=== PATIENT | male | born 1990 | race Caucasian/White ===

== ENCOUNTER 2021-04-12 02:50 | Emergency (ER) | payer BC ==
[2021-04-12] MEDS ORDERED: Sodium Chloride 0.9% 2.5 ML Syringe FLUSH PRN (02:51)
[2021-04-12] MEDS ORDERED: Ondansetron 4 MG/2 ML SDV IVPUSH ONE (02:51)
[2021-04-12] MEDS ORDERED: Sodium Chloride 0.9% 10 ML Syringe FLUSH PRN (02:51)
[2021-04-12] MEDS ORDERED: fentaNYL 50 MCG/ML SDV IVPUSH ONE ×2 (02:51→04:37)
[2021-04-12] MEDS ORDERED: Sodium Chloride 0.9% 1,000 ML IV ONE ×2 (02:51→02:53)
[2021-04-12] MEDS ORDERED: Ketorolac 30 MG/ML SDV IVPUSH ONE (02:51)
[2021-04-12] MEDS ORDERED: Tamsulosin 0.4 MG Cap.ER PO ONE (02:52)
--- NOTE | 2021-04-12 02:57 | EDM.PDOC ---
ED HPI GENERAL MEDICAL PROBLEM - General Stated Complaint: KIDNEY PAIN Time Seen by Provider: 04/12/21 02:51 - History of Present Illness INITIAL COMMENTS - FREE TEXT/NARRATIVE: HISTORY AND PHYSICAL: History of present illness: This is a 30-year-old gentleman with a history significant for kidney stones in the past when he was 12 years old who presents ER today secondary to severe pain to his left flank consistent with the pain that he is had with his prior kidney stone. Patient reports that the pain started this evening and has been severe with nausea and vomiting. Patient denies any recent fevers, shakes, chills, diarrhea, constipation, chest pain, shortness of breath. Patient has any melena or bright red blood per rectum. Patient has any coffee-ground emesis or hematemesis. Patient denies any bright red blood per rectum or melena. Patient reports the pain is colicky in nature. Review of systems: As per history of present illness and below otherwise all systems reviewed and negative. Past medical history: As per history of present illness and as reviewed below otherwise noncontributory. Surgical history: As per history of present illness and as reviewed below otherwise noncontributory. Social history: No reported history of drug abuse. Family history: As per history of present illness and as reviewed below otherwise noncontributory. Physical exam: This patient was seen and evaluated during the 2019 SARS-CoV-2 novel coronavirus pandemic period. Community viral transmission is ongoing at time of this encounter and the emergency department is operating under pandemic response procedures. Constitutional: Patient is oriented to person, place, and time. Appears well- developed and well-nourished. No distress. HEENT: Moist mucous membranes Head: Normocephalic and atraumatic Eyes: Right eye exhibits no discharge. Left eye exhibits no discharge. No scleral icterus Neck: Normal range of motion. No tracheal deviation present. Cardiovascular: Normal rate and regular rhythm. Pulmonary: Effort normal, no respiratory distress. Abd: Soft, nondistended, no rebound/guarding, no psoas or obturator signs, no tenderness at Mcberney's point, no Aranda's sign. Pt does not present with an exam that would be consistent with an acute surgical abdomen at this time, tenderness palpation left flank and left lower quadrant with episodes of retching while in the room. Musculoskeletal: Normal range of motion Neurologic: Alert and oriented to person, place and time. Skin: [place], warm and dry. Psychiatric: Normal mood and affect. Behavior is normal. Judgment and thought content normal. Nursing note and vital signs have been reviewed Diagnostics: CT scan of the abdomen pelvis reveals a 5 mm UVJ stone with mild to moderate hydronephrosis on the left side. No other significant abnormality identified. CBC, CMP within normal limits. Patient's urinalysis reveals significant mount of blood consistent with a kidney stone. Therapeutics: NSS x2 L, fentanyl 50 mg IV, Toradol 30 mg IV, Flomax 0.4 mg p.o. Assessment and plan: 89year-old gentleman who presents ER today with signs and symptoms and a presentation that appears to be consistent with renal colic. Patient will have a CBC, CMP, urinalysis as well as a CT scan of the abdomen pelvis without contrast. Patient will be given adequate analgesia with Toradol, fentanyl, NSS, Zofran and Flomax. Patient's CT scan is consistent with a UVJ stone 5 mm on the left side. Patient received adequately as you with fentanyl Toradol and Flomax here in the ED with near complete resolution of the pain at first however at approximately 4:30 AM, the pain recurred and the patient was complaining of pain to his left flank started to come back so he was given an additional 100 mcg of fentanyl and will be reevaluated. Definitive disposition and diagnosis as appropriate pending reevaluation and review of above. Abdomen Pain Score (Numeric/FACES): 10 - Related Data Allergies Allergy/AdvReac Type Severity Reaction Status Date / Time No Known Allergies Allergy Verified 04/12/21 03:06 Home Meds: Home Meds . [No Known Home Meds] 04/12/21 [History] ED ROS GENERAL - Review of Systems Review Of Systems: See Below ED EXAM, GENERAL - Physical Exam Exam: See Below Course - Vital Signs Last Recorded V/S: Last Vital Signs Temp 97 F 04/12/21 02:50 Pulse 64 04/12/21 03:25 Resp 18 04/12/21 03:25 BP 113/71 04/12/21 03:25 Pulse Ox 96 04/12/21 03:25 - Orders/Labs/Meds Orders: Active Orders 24 hr Category Date Time Status Sodium Chloride 0.9% [Saline Flush] Med 04/12/21 02:51 Active 10 ml FLUSH ASDIRECTED PRN Sodium Chloride 0.9% [Saline Flush] Med 04/12/21 02:51 Active 2.5 ml FLUSH ASDIRECTED PRN Saline Lock Insert [OM.PC] Stat Oth 04/12/21 02:51 Ordered Medication Orders Sodium Chloride (Sodium Chloride 0.9% 10 Ml Syringe) 10 ml FLUSH ASDIRECTED PRN PRN Reason: Keep Vein Open Sodium Chloride (Sodium Chloride 0.9% 2.5 Ml Syringe) 2.5 ml FLUSH ASDIRECTED PRN PRN Reason: Keep Vein Open Labs: Laboratory Tests 04/12/21 04/12/21 04/12/21 Range/Units 02:50 02:50 03:10 WBC 8.18 (4.0-11.0) K/uL RBC 4.72 (4.50-5.90) M/uL Hgb 15.3 (13.0-17.0) g/dL Hct 41.7 (38.0-50.0) % MCV 88.3 (80.0-98.0) fL MCH 32.4 H (27.0-32.0) pg MCHC 36.7 (31.0-37.0) g/dL RDW Std Deviation 39.9 (28.0-62.0) fl RDW Coeff of Tamia 12 (11.0-15.0) % Plt Count 240 (150-400) K/uL MPV 10.00 (7.40-12.00) fL Neut % (Auto) 40.0 L (48.0-80.0) % Lymph % (Auto) 50.9 H (16.0-40.0) % [place] % (Auto) 8.2 (0.0-15.0) % Eos % (Auto) 0.7 (0.0-7.0) % Baso % (Auto) 0.2 (0.0-1.5) % Neut # (Auto) 3.3 (1.4-5.7) K/uL Lymph # (Auto) 4.2 H (0.6-2.4) K/uL [place] # (Auto) 0.7 (0.0-0.8) K/uL Eos # (Auto) 0.1 (0.0-0.7) K/uL Baso # (Auto) 0.0 (0.0-0.1) K/uL Nucleated RBC % 0.0 /100WBC Nucleated RBCs # 0 K/uL Sodium 145 (136-148) mmol/L Potassium 3.3 L (3.5-5.1) mmol/L Chloride 105 (98-107) mmol/L Carbon Dioxide 27.5 (21.0-32.0) mmol/L BUN 15 (7.0-18.0) mg/dL Creatinine 1.0 (0.8-1.3) mg/dL Est Cr Clr Drug Dosing TNP Estimated GFR (MDRD) > 60.0 ml/min Glucose 107 H (74-106) mg/dL Calcium 8.4 L (8.5-10.1) mg/dL Total Bilirubin 0.7 (0.2-1.0) mg/dL AST 18 (15-37) IU/L ALT 29 (14-63) IU/L Alkaline Phosphatase 97 (46-116) U/L Total Protein 7.0 (6.4-8.2) g/dL Albumin 4.1 (3.4-5.0) g/dL Globulin 2.9 (2.6-4.0) g/dL Albumin/Globulin Ratio 1.4 (0.9-1.6) Lipase 98 (73-393) U/L Urine Color YELLOW Urine Appearance SLT CLOUDY Urine pH 6.0 (5.0-8.0) Ur Specific Mcloud >= 1.030 (1.001-1.035) Urine Protein NEGATIVE (NEGATIVE) mg/dL Urine Glucose (UA) NEGATIVE (NEGATIVE) mg/dL Urine Ketones TRACE H (NEGATIVE) mg/dL Urine Occult Blood LARGE H (NEGATIVE) Urine Nitrite NEGATIVE (NEGATIVE) Urine Bilirubin NEGATIVE (NEGATIVE) Urine Urobilinogen 0.2 (<2.0) EU/dL Ur Leukocyte Esterase NEGATIVE (NEGATIVE) Urine RBC 20-30 (0-2/HPF) Urine WBC 0-2 (0-5/HPF) Ur Epithelial Cells RARE (NONE-FEW) Calcium Oxalate Crystal RARE (NEGATIVE) Urine Bacteria FEW (NEGATIVE) Meds: Medications Generic Name Dose Route Start Last Admin Trade Name Freq PRN Reason Stop Dose Admin Sodium Chloride 10 ml 04/12/21 02:51 Sodium Chloride 0.9% 10 Ml Syringe FLUSH ASDIRECTED PRN Keep Vein Open Sodium Chloride 2.5 ml 04/12/21 02:51 Sodium Chloride 0.9% 2.5 Ml Syringe FLUSH ASDIRECTED PRN Keep Vein Open Discontinued Medications Generic Name Dose Route Start Last Admin Trade Name Marilyn PRN Reason Stop Dose Admin Fentanyl 50 mcg 04/12/21 02:51 04/12/21 03:07 Fentanyl 50 Mcg/Ml Sdv IVPUSH 04/12/21 02:52 50 mcg ONETIME ONE Administration Fentanyl 100 mcg 04/12/21 04:37 04/12/21 04:43 Fentanyl 50 Mcg/Ml Sdv IVPUSH 04/12/21 04:38 100 mcg ONETIME ONE Administration Sodium Chloride 1,000 mls @ 999 mls/hr 04/12/21 02:51 04/12/21 03:07 Normal Saline IV 04/12/21 03:51 999 mls/hr .Bolus ONE Administration Sodium Chloride 1,000 mls @ 999 mls/hr 04/12/21 02:53 04/12/21 03:07 Normal Saline IV 04/12/21 03:53 999 mls/hr .Bolus ONE Administration Ketorolac Tromethamine 30 mg 04/12/21 02:51 04/12/21 03:07 Ketorolac 30 Mg/Ml Sdv IVPUSH 04/12/21 02:52 30 mg ONETIME ONE Administration Ondansetron HCl 4 mg 04/12/21 02:51 04/12/21 03:07 Ondansetron 4 Mg/2 Ml Sdv IVPUSH 04/12/21 02:52 4 mg ONETIME ONE Administration Tamsulosin HCl 0.4 mg 04/12/21 02:52 04/12/21 03:07 Tamsulosin 0.4 Mg Cap.Er PO 04/12/21 02:53 0.4 mg ONETIME ONE Administration Departure - Departure Time of Disposition: 04:53 Disposition: Home, Self-Care 01 Condition: Good Clinical Impression: Hydronephrosis of left kidney, Renal colic on left side - Discharge Information Instructions: Renal Colic, [id number], Hydronephrosis Additional Instructions: Your seen and evaluated in ER today secondary to pain to your left flank that appears to be consistent with a 5 mm kidney stone at the junction of your ureter and your bladder. This has a mild to moderate amount of hydronephrosis which is swelling to your kidney which is known to cause pain and aching even after your kidney stone passes. You will be sent home with a prescription for pain medicines as well as medication to help you pass your stone. Percocet 5325 every 4-6 hours as needed for pain Ibuprofen 600 mg every 6 hours as needed for pain Zofran 4 mg under your tongue every 6 hours as needed for nausea and vomiting Flomax 0.4 mg every evening to help pass the stone Dr. [facility]co [facility] [address] [address] The following information is given to patients seen in the emergency department who are being discharged to home. This information is to outline your options for follow-up care. We provide all patients seen in our emergency department with a follow-up referral. The need for follow-up, as well as the timing and circumstances, are variable depending upon the specifics of your emergency department visit. If you don't have a primary care physician on staff, we will provide you with a referral. We always advise you to contact your personal physician following an emergency department visit to inform them of the circumstance of the visit and for follow-up with them and/or the need for any referrals to a consulting specialist. The emergency department will also refer you to a specialist when appropriate. This referral assures that you have the opportunity for follow-up care with a specialist. All of these measure are taken in an effort to provide you with optimal care, which includes your follow-up. Under all circumstances we always encourage you to contact your private physician who remains a resource for coordinating your care. When calling for follow-up care, please make the office aware that this follow-up is from your recent emergency room visit. If for any reason you are refused follow-up, please contact the [facility] Emergency Department at and asked to speak to the emergency department charge nurse. Avni Batista [facility] - Primary Care [address] [place] [id number] [address] Sepsis Event Note (ED) - Focused Exam Vital Signs: Vital Signs Temp Pulse Resp BP Pulse Ox 04/12/21 03:25 64 18 113/71 96 04/12/21 02:50 97 F 71 18 139/82 95 - My Orders Last 24 Hours: My Active Orders 04/12/21 02:51 Sodium Chloride 0.9% [Saline Flush] 10 ml FLUSH ASDIRECTED PRN Sodium Chloride 0.9% [Saline Flush] 2.5 ml FLUSH ASDIRECTED PRN Saline Lock Insert [OM.PC] Stat - Assessment/Plan Last 24 Hours: My Active Orders 04/12/21 02:51 Sodium Chloride 0.9% [Saline Flush] 10 ml FLUSH ASDIRECTED PRN Sodium Chloride 0.9% [Saline Flush] 2.5 ml FLUSH ASDIRECTED PRN Saline Lock Insert [OM.PC] Stat
[2021-04-12 03:23] LABS: BLOOD UREA NITROGEN,BUN 15 mg/dL (7.0-18.0); CARBON DIOXIDE,CO2 27.5 mmol/L (21.0-32.0); CHLORIDE,CL 105 mmol/L (98-107); GLUCOSE RANDOM 107 mg/dL (74-106); LIPASE 98 U/L (73-393); POTASSIUM,K 3.3 mmol/L (3.5-5.1); SODIUM,NA 145 mmol/L (136-148)
--- NOTE | 2021-04-12 03:31 | CT ---
For Patients: As a result of the Cures Act, medical imaging exams and procedure reports are released immediately into your electronic medical record. You may view this report before your referring provider. If you have questions, please contact your health care provider. INDICATION: Left flank pain, history stones TECHNIQUE: CT Abdomen and pelvis without i.v. contrast. Coronal and sagittal reformats were obtained. COMPARISON: None FINDINGS: Lower chest: Unremarkable. Liver: Unremarkable. Spleen: Unremarkable. Pancreas: Unremarkable. Gallbladder: Unremarkable. Kidney: There is a 5 mm stone present in the left ureterovesicular junction causing mild to moderate hydroureter and moderate renal pelvicaliectasis. Punctate intrarenal stones are present bilaterally measuring up to 2 mm. Adrenal: Unremarkable. Bowel: Unremarkable. The appendix is normal in appearance and size. Vascular: Unremarkable. Lymph: Unremarkable. Peritoneum: Unremarkable. No pneumoperitoneum is seen. No significant ascites is noted. Pelvis: Unremarkable. Soft tissue: Unremarkable. Bone: Unremarkable for age. IMPRESSION: 1. There is a 5 mm stone present in the left ureterovesicular junction causing mild to moderate hydroureter and moderate renal pelvicaliectasis. Dictated by Sai Brown MD @ 04/12/2021 3:30:09 AM Please note that all CT scans at this facility use dose modulation, iterative reconstruction, and/or weight-based dosing when appropriate to reduce radiation dose to as low as reasonably achievable. Dictated by: Sai Brown MD @ 04/12/2021 03:30:14 (Electronically Signed)
== END 2021-04-12 06:03 | disposition home or self-care (01) ==
LOC: MW.ED 02:50
DX: N13.2 Hydronephrosis with renal and ureteral calculous obstruction (principal)
CPT/HCPCS: 36415; 74176; 80053; 81001; 83690; 85025; 96374; 96375; 96376; 99284; A9270; J1885; J2405; J3010; J7030